=== PATIENT | male | born 1960 | race Caucasian/White ===

== ENCOUNTER 2020-08-26 13:05 | Emergency (ER) | payer BC, OTHER ==
[2020-08-26 13:51] VITALS: BP 124/51; PULSE 103; TEMP 98.1; BMI 28.0
[2020-08-26 14:37] LABS: BASO % 1.1 % (0-2.0); EOS % 0.9 % (0-4.5); HEMATOCRIT 34.1 % (35.4-49); HEMOGLOBIN 11.7 GM/dL (11.7-16.9); LYMPH % 20.8 % (8-40); MCH 33.9 pg (25.7-33.7); MCHC 34.4 g/dl (32.0-35.9); MEAN CELL VOLUME 98.5 fl (80-96); MEAN PLT VOLUME 8.9 fl (7.5-11.1); MONO % 9.3 % (3.8-10.2); NEUT % 67.9 % (42.8-82.8); RBC 3.46 M/mm3 (4.00-5.60); RDW 14.3 % (11.9-15.9); WHITE BLOOD COUNT 3.9 K/mm3 (4.0-10.0)
[2020-08-26 14:48] LABS: INR 1.88 (0.83-1.09); PROTHROMBIN TIME (PATIENT) 22.3 SEC (9.7-13.0)
[2020-08-26 14:50] LABS: ACTIVATED PTT 38.6 SECONDS (25.2-36.5); POTASSIUM 3.3 mmol/L (3.5-5.1)
[2020-08-26 14:52] LABS: ALBUMIN 2.8 g/dl (3.4-5.0); BLOOD UREA NITROGEN 8.9 mg/dL (7-18); CALCIUM 8.5 mg/dL (8.5-10.1)
[2020-08-26 14:57] LABS: CREATININE 0.8 mg/dL (0.55-1.3)
[2020-08-26 14:58] LABS: BILIRUBIN,TOTAL 3.5 mg/dL (0.2-1); TOT PROT 7.9 g/dl (6.4-8.2)
[2020-08-26 15:18] LABS: N-TERMINAL BNP 31.8 pg/ml (5-125)
[2020-08-26 15:23] LABS: PLATELET COUNT 31 K/MM3 (134-434)
[2020-08-26] MEDS ORDERED: LACTULOSE 20 GM/30 ML UDC (FOR ORAL USE ONLY) PO ONE (15:52)
[2020-08-26 23:03] LABS: MAGNESIUM 1.7 mg/dL (1.8-2.4)
== END 2020-08-26 17:00 | disposition left against medical advice (07) ==
LOC: JER 13:05
DX: D69.6 Thrombocytopenia, unspecified (principal); R79.1 Abnormal coagulation profile
CPT/HCPCS: 36415; 71045-TC-FY; 80053; 82140; 83735; 83880; 84484; 85025; 85610; 85730; 93005; 93010; 99285-25

== ENCOUNTER 2022-05-31 00:22 | Emergency (ER) | payer BC, OTHER ==
[2022-05-31 00:39] VITALS: TEMP 97.9; BMI 28.0
[2022-05-31 05:45] VITALS: BP 150/81; PULSE 69; RESP 18
== END 2022-05-31 05:45 | disposition home or self-care (01) ==
LOC: JER 00:22
DX: Z04.3 Encounter for examination and observation following other accident (principal); W19.XXXA Unspecified fall, initial encounter; Y92.9 Unspecified place or not applicable
CPT/HCPCS: 70450-TC; 72125-TC; 99284-25

== ENCOUNTER 2023-06-22 17:32 | Emergency (ER) | payer BC, OTHER ==
[2023-06-22 18:24] VITALS: BP 134/86; PULSE 104; RESP 18; TEMP 98.3; BMI 28.0
[2023-06-22] MEDS ORDERED: DIPHTH,PERTUSS(ACELL),TET 0.5 ML DISP.SYRIN IM ONE ×3 (18:49→20:13)
== END 2023-06-22 20:29 | disposition home or self-care (01) ==
LOC: JER 17:32
PROC: 3E0234Z Introduction of Serum, Toxoid and Vaccine into Muscle, Percutaneous Approach (ICD-10-PCS; principal; 2023-06-22)
DX: F10.129 Alcohol abuse with intoxication, unspecified (principal); S00.81XA Abrasion of other part of head, initial encounter; R00.0 Tachycardia, unspecified; W01.0XXA Fall on same level from slipping, tripping and stumbling without subsequent striking against object, initial encounter; Y93.01 Activity, walking, marching and hiking; Y90.9 Presence of alcohol in blood, level not specified
CPT/HCPCS: 70450-TC; 90715; 99284-25

== ENCOUNTER 2023-07-30 16:09 | Emergency (ER) | payer BC, OTHER ==
[2023-07-30] MEDS ORDERED: HALOPERIDOL LACTATE 5 MG/ML IM ONE (16:45)
[2023-07-30 16:46] VITALS: BMI 27.2
[2023-07-30] MEDS ORDERED: HALOPERIDOL LACTATE 5 MG/ML ONE (16:50)
[2023-07-30 19:01] VITALS: BP 137/80; PULSE 78; RESP 20; TEMP 97.7
== END 2023-07-30 19:00 | disposition home or self-care (01) ==
LOC: JER 16:09
PROC: 3E023GC Introduction of Other Therapeutic Substance into Muscle, Percutaneous Approach (ICD-10-PCS; principal; 2023-07-30)
PROC: 3E023GC Introduction of Other Therapeutic Substance into Muscle, Percutaneous Approach (ICD-10-PCS; 2023-07-30)
DX: S05.12XA Contusion of eyeball and orbital tissues, left eye, initial encounter (principal); S00.83XA Contusion of other part of head, initial encounter; R47.81 Slurred speech; F10.129 Alcohol abuse with intoxication, unspecified; W10.9XXA Fall (on) (from) unspecified stairs and steps, initial encounter; Y93.01 Activity, walking, marching and hiking
CPT/HCPCS: 70450-TC; 70486-TC; 72125-TC; 99284-25